=== PATIENT | male | born 1995 | race Caucasian/White ===

== ENCOUNTER 2024-08-24 08:17 | Emergency (ER) | payer OTHER ==
[~2024-08-24] VITALS: Ht 182.9 cm; Wt 86.1 kg
[2024-08-24 08:19] VITALS: BP 167/95
[2024-08-24 08:30] VITALS: BP 148/99
[2024-08-24 08:45] VITALS: BP 166/87
[2024-08-24 09:00] VITALS: BP 142/93
[2024-08-24 09:15] VITALS: BP 144/113
[2024-08-24 09:24] VITALS: BP 128/78
== END 2024-08-24 09:41 | disposition home or self-care (01) | DRG 556 ==
LOC: ED 08:17
DX: M79.672 Pain in left foot (principal); W20.8XXA Other cause of strike by thrown, projected or falling object, initial encounter; Y99.0 Civilian activity done for income or pay